=== PATIENT | male | born 1985 ===

== ENCOUNTER 2016-08-16 11:42 | Inpatient (IN) | payer MEDICAID, OTHER ==
[2016-08-16 11:42] VITALS: BMI 25.8
[2016-08-16 13:47] LABS: RBC URINE < 1 /hpf (0-3); URINE BILIRUBIN NEGATIVE (NEGATIVE); URINE BLOOD NEGATIVE (NEGATIVE); URINE COLOR Yellow (YELLOW); URINE GLUCOSE (UA) NORMAL (Normal); URINE KETONE NEGATIVE (NEGATIVE); URINE LEUKOCYTE ESTERASE NEG Leu/uL (Negative); URINE PROTEIN NEGATIVE (NEGATIVE); WBC URINE < 1 /hpf (0-5)
[2016-08-16 13:50] LABS: CHLORIDE 101 mmol/L (98-107); SODIUM 140 mmol/L (132-148)
[2016-08-16 13:51] LABS: BASO % 0.4 % (0.0-2.0); EOS # 0.2 K/uL (0.0-0.7); EOS % 4.5 % (0.0-4.0); HEMATOCRIT 43.6 % (35.0-51.0); LYMPH # 1.5 K/uL (1.0-4.3); LYMPH % 35.9 % (20.0-40.0); MEAN CELL VOLUME 87.3 fL (80.0-94.0); MEAN CORPUSCULAR HEMOGLOBIN 29.3 pg (27.0-31.0); MEAN CORPUSCULAR HGB CONC 33.6 g/dL (33.0-37.0); MEAN PLATELET VOLUME 8.9 fL (7.2-11.7); MONO # 0.5 K/uL (0.0-0.8); MONO % 12.4 % (0.0-10.0); NRBC % 0.2 % (0.0-2.0); POTASSIUM 4.4 mmol/L (3.6-5.2); RED CELL DISTRIBUTION WIDTH 13.4 % (11.5-14.5); WHITE BLOOD COUNT 4.2 K/uL (4.8-10.8)
[2016-08-16 13:53] LABS: ALB/GLOB RATIO 1.1 (1.0-2.1); ALCOHOL SERUM < 10 mg/dl (0-10); ALKALINE PHOSPHATASE 77 U/L (38-126); ALT/SGPT 43 U/L (21-72); AST/SGOT 50 U/L (17-59); BILIRUBIN,TOTAL 0.9 mg/dL (0.2-1.3); BLOOD UREA NITROGEN 13 mg/dL (9-20); CARBON DIOXIDE 26 mmol/L (22-30); GFR AFRICAN-AMERICAN > 60; GLUCOSE,RANDOM 86 mg/dL (75-110); TOTAL PROTEIN 8.5 g/dL (6.3-8.3)
[2016-08-16 13:54] LABS: CALCIUM 8.5 mg/dl (8.6-10.4)
--- NOTE | 2016-08-16 14:09 | C.PDOC ---
History Of Present Illness 31 y/o male presents to emergency department requesting detox for heroin. Patient notes last use was yesterday. Patient was pre-screened for admission prior to arrival. Denies any suicidal ideation, homicidal ideation, withdrawal symptoms, or other complaints. Time Seen by Provider: 08/16/16 13:15 Chief Complaint (Nursing): Substance Abuse History Per: Patient History/Exam Limitations: no limitations Onset/Duration Of Symptoms: Persistent Current Symptoms Are (Timing): Still Present Modifying Factor(s): Narcotics (heroin) Associated Symptoms: denies: Suicidal Thoughts, Suicidal Plan Recent travel outside of the [place]: No Past Medical History Reviewed: Historical Data, Nursing Documentation, Vital Signs Vital Signs: Last Vital Signs Temp 98 F 08/16/16 20:24 Pulse 91 H 08/16/16 20:24 Resp 18 08/16/16 20:24 BP 148/88 08/16/16 20:24 Pulse Ox 96 08/16/16 20:24 - Medical History PMH: Anxiety, Asthma, Bipolar Disorder, Depression, HIV, Rheumatoid Arthritis, Schizophrenia, Seizures (caused by dx of lupus), Sexually Transmitted Disease Denies: HTN (high blood pressure only when using drugs) - [facility] Procedures DETOXIFICATION SERVICES FOR SUBSTANCE ABUSE TREATMENT (02/07/16) DRUG DETOXIFICATION (11/01/14) INDIVID PSYCHOTHERAP NEC (01/13/15) INTRODUCTION OF SERUM/TOX/VACCINE INTO MUSCLE, PERC APPROACH (11/14/15) OTHER GROUP THERAPY (12/24/14) Family History: States: Unknown Family Hx - Social History Hx Tobacco Use: Yes Hx Alcohol Use: No Hx Substance Use: Yes - Immunization History Hx Tetanus Toxoid Vaccination: No Hx Influenza Vaccination: No Hx Pneumococcal Vaccination: No Review Of Systems Except As Marked, All Systems Reviewed And Found Negative. Constitutional: Negative for: Fever Cardiovascular: Negative for: Chest Pain Respiratory: Negative for: Shortness of Breath Gastrointestinal: Negative for: Nausea, Vomiting Skin: Negative for: Rash Psych: Negative for: Suicidal ideation, Withdrawal Physical Exam - Physical Exam Appears: Non-toxic, No Acute Distress Skin: Normal Color, Warm, Dry Head: Atraumatic, Normacephalic Oral Mucosa: Moist Chest: Symmetrical Cardiovascular: Rhythm Regular, No Murmur Respiratory: Normal Breath Sounds, No Rales, No Rhonchi, No Wheezing Gastrointestinal/Abdominal: Soft, No Tenderness, No Guarding, No Rebound Back: Normal Inspection Extremity: Normal ROM, Capillary Refill (< 2 sec. ), Other (track armenta to bilateral upper extremities, no abscesses or signs of infection) Neurological/Psych: Oriented x3, Normal Speech, Normal Cognition ED Course And Treatment - Laboratory Results Result Diagrams: 08/16/16 13:36 08/16/16 13:36 Lab Interpretation: Abnormal (tox + opiates, cocaine) O2 Sat by Pulse Oximetry: 98 (RA) Pulse Ox Interpretation: Normal Progress Note: Pt given Tylenol. Crisis aware of patient. Reevaluation Time: 15:34 Reassessment Condition: Improved - Physician Consult Information Outcome Of Conversation: d/w Crisis @ 1530 ok to detox. Disposition Doctor Will See Patient In The: Hospital Counseled Patient/Family Regarding: Studies Performed, Diagnosis - Disposition Disposition: HOSPITALIZED Disposition Time: 15:35 Condition: GOOD - Clinical Impression Clinical Impression: Opiate abuse, continuous, Cocaine abuse - Scribe Statement The provider has reviewed the documentation as recorded by the Francisco Lau Provider Attestation: All medical record entries made by the Francisco were at my direction and personally dictated by me. I have reviewed the chart and agree that the record accurately reflects my personal performance of the history, physical exam, medical decision making, and the department course for this patient. I have also personally directed, reviewed, and agree with the discharge instructions and disposition.
[2016-08-16] MEDS: Efavirenz/Emtricitabine/Teno 1 TAB PO SCH (18:49)
[2016-08-16] MEDS: Albuterol HFA 90 mcg/actuation (8 g) INH PRN (23:22)
[2016-08-16] MEDS ORDERED: Aluminum Hydroxide/Magnesium Hydroxide Susp (30 mL) PO PRN (23:22)
[2016-08-17] MEDS: Efavirenz/Emtricitabine/Teno 1 TAB PO SCH (09:19)
--- NOTE | 2016-08-17 12:25 | PCM.PSYCH ---
Initial Psychiatric Evaluation - Initial Psychiatric Evaluation Type of Admission: Voluntary Legal Status: Capacity Chief Complaint (in patient's own words): I came to get help History of Present Illness and Precipitating Events: This is a 31 years old male, who is currently homeless and currently unemployed, came to the hospital to get help in heroin detox. 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 He was diagnosed with lupus and HIV and bipolar disorder. As per him, his lupus has made his bipolar disorder worse. He started using heroin and cocaine last year. Yesterday he did almost 4 bundle of heroin and 1 g of cocaine, became increasingly irritable and depressed, so he came to the hospital to get help. Patient reports of withdrawal symptoms including headache, anxiety, nausea, cramps and joint pain. Patient reports irritable and agitated mood, but denies any feelings of hopelessness or helplessness, denies any suicidal ideation or homicidal ideation. He denies any psychotic or manic symptoms. He denies any other substance abuse. Past medical history Lupus, HIV, Seizures Current Medications: Active Medications Generic Name Dose Route Start Last Admin Trade Name Freq PRN Reason Stop Dose Admin Al Hydrox/Mg Hydrox/Simethicone 30 ml 08/16/16 23:22 Maalox 30 Ml PO TID PRN Indigestion / Heartburn Albuterol 1 puff 08/16/16 18:29 08/16/16 23:22 Ventolin Hfa 90 Mcg/Actuation (8 G) INH 1 puff RQ6 PRN Administration Shortness of Breath Clonidine HCl 0.1 mg 08/16/16 23:22 Catapres PO Q8 PRN COWS Score More or Equal to 5 Diphenhydramine HCl 50 mg 08/16/16 22:47 08/16/16 23:21 Benadryl PO 50 mg HS PRN Administration Sleep Efavirenz/Emtricitabine/Tenofovir 1 tab 08/16/16 18:33 08/17/16 09:19 Atripla 600 Mg-200 Mg-300 Mg PO 1 tab DAILY MARIBEL Administration Gabapentin 400 mg 08/16/16 18:45 08/17/16 09:19 Neurontin PO 400 mg TID MARIBEL Administration Hydroxyzine HCl 50 mg 08/17/16 10:00 08/17/16 09:19 Atarax PO 50 mg QID MARBIEL Administration Ibuprofen 600 mg 08/16/16 23:22 Motrin Tab PO Q6H PRN Pain, moderate (4-7) Levetiracetam 750 mg 08/16/16 18:30 08/17/16 09:20 Keppra PO 750 mg BID MARIBEL Administration Loperamide HCl 2 mg 08/16/16 23:22 Imodium PO Q8 PRN Diarrhea Methadone HCl 15 mg 08/17/16 10:00 08/17/16 09:19 Methadone PO 08/21/16 09:59 15 mg Q24H MARIBEL Administration Taper Ondansetron HCl 4 mg 08/16/16 23:22 Zofran Tab PO Q8 PRN Nausea/Vomiting Trazodone HCl 100 mg 08/16/16 23:30 Desyrel PO HS [facility] Past Psychiatric History - Past Psychiatric History Previous Treatment History: Inpatient Pertinent Medical Hx (Current Medical&Sleep Prob, Allergies): Allergies Allergy/AdvReac Type Severity Reaction Status Date / Time FISH Allergy Mild RASH Verified 08/16/16 12:18 nut - unspecified [nut] Allergy Mild RASH Verified 08/16/16 12:18 onion Allergy Verified 08/16/16 12:18 pepper Allergy Verified 08/16/16 12:18 Albuterol HFA 1 puff INH PRN PRN 08/16/16 Divalproex [Depakote DR(*BID*)] 500 mg PO BID 08/16/16 Gabapentin 400 mg PO TID 08/16/16 Levetiracetam [Keppra] 750 mg PO BID 08/16/16 QUEtiapine [SEROquel] 200 mg PO HS 08/16/16 Review of Systems - Review of Systems All systems: reviewed and no additional remarkable complaints except - Psychiatric Psychiatric: Anxiety, Depression, Irritability Mental Status Examination - Personal Presentation Personal Presentation: Looks stated age - Affect Affect: Constricted, Depressed - Motor Activity Motor Activity: Calm - Reliability in Providing Information Reliability in Providing Information: Good - Speech Speech: Organized - Mood Mood: Depressed, Anxious - Formal Thought Process Formal Thought Process: No Impairment - Obsessions/Compulsions Obsessions: No Compulsions: No - Cognitive Functions Orientation: Person, Place, Situation, Time Sensorium: Alert Attention/Concentration: Attentive Abstract Thinking: [place] Estimate of Intelligence: Below average Judgement: Imparied, as evidence by: Poor judgement, Intact, as evidence by: Insight regarding need for hospitalization - Risk Risk: Withdrawal, Diminished functioning - Strength & Assets Inventory Strength & Assets Inventory: Cooperative - Limitations Limitations: Living alone DSM 5 DX - DSM 5 DSM 5 Diagnosis: Opioid use disorder severe Opioid withdrawal Cocaine use disorder severe Bipoalr disorder Mixed moderate - Recommended/Plan of Treatment Treatment Recommendations and Plan of Treatment: Opioid use disorder severe CBT Psychoeducation Supportive therapy, individual therapy Use [place] for abstinence Opioid withdrawal CBT Psychoeducation Supportive therapy, individual therapy Clonidine when necessary Start Subutex when scoring Cocaine use disorder severe CBT Psychoeducation Supportive therapy, individual therapy Bipolar disorder Mixed moderate CBT Psychoeducation Supportive therapy, individual therapy Zoloft 50 mg PO daily Trazodone 50 mg PO Q HS h/o Lupus Monitor signs and symptoms HIV Continue prescribed medications (Atripla) Monitor signs and symptoms Seizures Continue prescribed medications (Keppara) Monitor signs and symptoms Asthma Continue prescribed medications (Albuterol) Monitor signs and symptoms - Smoking Cessation Smoking Cessation Initiated: No
[2016-08-17] MEDS: Albuterol HFA 90 mcg/actuation (8 g) INH PRN (17:44)
[2016-08-18] MEDS: Efavirenz/Emtricitabine/Teno 1 TAB PO SCH (09:07)
[2016-08-18] MEDS ORDERED: ALBUTEROL INH PRN (12:05)
--- NOTE | 2016-08-18 12:05 | PCM.PYCHPN ---
Psychiatric Progress Note - Psychiatric Progress Note Patient seen today, length of contact: 15 min Patient Chief Complaint: I came to get help Problems Identified/Issues Discussed: Patient seen and evaluated, chart reviewed and discussed with the nurse. Patient reports irritability and agitation. He still reports withdrawal symptoms including shakes, anxiety, headaches and sweating. He reports racing of thoughts and flight of ideas and anxiety. However he remained calm and cooperative. He is taking medication and denies any side effects. Supportive therapy and psychoeducation were given Medication Change: Yes (continue Depakote, continuous seroquel ) Medical Record Reviewed: Yes Mental Status Examination - Cognitive Function Orientation: Person, Place, Situation, Time Memory: Intact Attention: WNL Concentration: Poor Association: Loose Fund of Knowledge: WNL - Mood Mood: Anxious - Affect Affect: Constricted - Speech Speech: Soft - Formal Thought Process Formal Thought Process: No Impairment - Suicidal Ideation Suicidal Ideation: No - Homicidal Ideation Homicidal Ideation: No Goal/Treatment Plan - Goal/Treatment Plan Need for Continued Stay: Discharge may exacerbated symptoms, Severe functional impairment Progress Toward Problem(s) and Goals/Treatment Plan: Opioid use disorder severe CBT Psychoeducation Supportive therapy, individual therapy Use [place] for abstinence Opioid withdrawal CBT Psychoeducation Supportive therapy, individual therapy Clonidine when necessary Subutex when scoring Cocaine use disorder severe CBT Psychoeducation Supportive therapy, individual therapy Bipoalr disorder Mixed moderate CBT Psychoeducation Supportive therapy, individual therapy discontinue Zoloft 50 mg PO daily Trazodone 50 mg PO Q HS Depakote 500 mg by mouth twice a day Seroquel 200 mg by mouth daily at bedtime Gabapentin 400 mg by mouth 3 times a day h/o Lupus Monitor signs and symptoms HIV Continue prescribed medications (Atripla) Monitor signs and symptoms Seizures Continue prescribed medications (Keppara) Monitor signs and symptoms Asthma Continue prescribed medications (Albuterol) Monitor signs and symptoms - Smoking Cessation Smoking Cessation Initiated: No
[2016-08-18] MEDS: Divalproex 500 mg DR Tab PO SCH (18:16)
[2016-08-18] MEDS: Albuterol HFA 90 mcg/actuation (8 g) INH PRN (18:17)
[2016-08-18 20:33] VITALS: RESP 18
[2016-08-19] MEDS: Efavirenz/Emtricitabine/Teno 1 TAB PO SCH (10:13)
[2016-08-19] MEDS: Divalproex 500 mg DR Tab PO SCH ×2 (10:14→18:21)
[2016-08-19] MEDS: Albuterol HFA 90 mcg/actuation (8 g) INH PRN (14:52)
--- NOTE | 2016-08-20 00:54 | PCM.PYCHPN ---
Psychiatric Progress Note - Psychiatric Progress Note Patient seen today, length of contact: 17 min Problems Identified/Issues Discussed: The pt is seen, chart reviewed, case discussed with staff. The pt is compliant with medications and reports no side-effects. Symptoms are improving but needs more time to stabilize. After care discussed, support and psychoeducation given. He demands that he be transferred to rehab as he will relapse otherwise. 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 SC and CBT used briefly. Limit setting discussed. Medication Change: Yes (detox changes daily) Medical Record Reviewed: Yes Mental Status Examination - Cognitive Function Orientation: Person, Place, Situation, Time Memory: Intact Attention: WNL Concentration: Poor Association: Loose Fund of Knowledge: WNL - Mood Mood: Anxious - Affect Affect: Constricted - Speech Speech: Soft - Formal Thought Process Formal Thought Process: No Impairment - Suicidal Ideation Suicidal Ideation: No - Homicidal Ideation Homicidal Ideation: No Goal/Treatment Plan - Goal/Treatment Plan Need for Continued Stay: Discharge may exacerbated symptoms, Severe functional impairment Progress Toward Problem(s) and Goals/Treatment Plan: Continue detox Refer to rehab No med change Support Mi and CBT Estimated Date of D/C: 08/20/16
[2016-08-20 06:27] VITALS: TEMP 97.8
--- NOTE | 2016-08-20 08:58 | PCM.PYCHDC ---
Mental Status Examination - Mental Status Examination Orientation: Person, Place, Situation, Time Memory: Intact Mood: Anxious Affect: Constricted Speech: Appropriate Attention: Poor Concentration: Poor Association: WNL Fund of Knowledge: WNL Formal Thought Process: No Impairment Suicidal Ideation: No Current Homicidal Ideation?: No Discharge Summary - Discharge Note Reason for Hospitalization: Heroin detox Psychiatric History (includes Medical, Family, Personal Hx): Admissions with bipolar d/o to and [facility]. HIV Consultations:: List each consultation separately and include: 1. Reason for request. 2. Findings. 3. Follow-up Summary of Hospital Course include:: 1. Description of specific treatment plan utilized for patients during their course of treatmen. 2. Summarize the time- course for resolution of acute symptoms and/or regressed behaviors. 3. Describe issues identified and worked on during hospitalization. 4. Describe medication utilized. 5. Describe medical problems identified and treated. 6. Reassessment of suicide risk Summary of Hospital Course: Hospital course: The pt was admitted and started on treatment with psychotherapy, support, psychoeducation and medications. NC and CBT used. The pt attended groups and activities, as well as milieu therapy. All the risks and benefits of medications are discussed and the patient understood and agreed. After care discussed with the patient. That was a problem. Please see counselor notes for details, but in short the pt was unmotivated but yet wanted to look motivated, undecided and also he had obstacles beyond our reach, i.e. no ID, inactive Medicaid etc. He was given several options despite the limitations but as before nothing satisfied him. He was found an agency in [facility] where he would get social help, urgent placement etc. We got a call from that agency while he was there and they faxed an SHARI and we responded their requests to accommodate him, so that he finds a place. - Final Diagnosis (DSM 5) Condition upon Discharge: FAIR DSM 5: Opioid withdrawal Opioid use d/o - severe Bipolar d/o - mixed, moderate Cocaine use d/o Disposition: HOME/ ROUTINE Follow-up Treatment Plan: Continue below medications after discharge. Follow after care plan as discussed. Use relapse prevention skills Return to ER or call 911 if suicidal, homicidal or symptoms relapse. Stay away from stress, alcohol and drugs. Prescriptions/Medication Reconciliation: Efavirenz/Emtricitabine/Teno [Atripla 600 MG-200 MG-300 MG] 1 tab PO DAILY #30 tab Divalproex [Depakote DR(*BID*)] 500 mg PO BID #60 tcp traZODone [Desyrel] 100 mg PO HS #30 tab levETIRAcetam [Keppra] 750 mg PO BID #60 tab Gabapentin [Neurontin] 400 mg PO TID #90 cap QUEtiapine [SEROquel] 200 mg PO HS #30 tab Albuterol HFA [Ventolin HFA 90 mcg/actuation (8 g)] 1 puff INH RQ6 PRN #1 inhaler PRN Reason: Shortness Of Breath - Smoking Cessation Smoking Cessation Medication prescribed: No - Antipsychotic Medications Pt discharged on 2 or more routine antipsychotic medications: No
[2016-08-20] MEDS: Divalproex 500 mg DR Tab PO SCH (09:01)
[2016-08-20] MEDS: Efavirenz/Emtricitabine/Teno 1 TAB PO SCH (09:02)
[2016-08-20 09:04] VITALS: BP 145/82; PULSE 100; O2SAT 98
== END 2016-08-20 10:15 | disposition home or self-care (01) | DRG 714 ==
LOC: C.ER 11:42 → C.7D 15:33
PROVIDERS: ADMIT Psychiatry & Neurology Psychiatry; ATTEND Psychiatry & Neurology Psychiatry
PROC: HZ2ZZZZ Detoxification Services for Substance Abuse Treatment (ICD-10-PCS; principal; 2016-08-16)
PROC: HZ59ZZZ Individual Psychotherapy for Substance Abuse Treatment, Supportive (ICD-10-PCS; 2016-08-16)
PROC: GZ3ZZZZ Medication Management (ICD-10-PCS; 2016-08-16)
DX: F11.23 Opioid dependence with withdrawal (principal); F14.10 Cocaine abuse, uncomplicated; F31.62 Bipolar disorder, current episode mixed, moderate; Z21 Asymptomatic human immunodeficiency virus [HIV] infection status; G40.909 Epilepsy, unspecified, not intractable, without status epilepticus; M32.9 Systemic lupus erythematosus, unspecified; J45.909 Unspecified asthma, uncomplicated; Z59.0 Homelessness